=== PATIENT | male | born 1975 | race Caucasian/White ===

== ENCOUNTER → 2016-08-19 | Outpatient (CLI) | payer OTHER | LOC: CIMAGING 08:10 | PROVIDERS: ATTEND Internal Medicine Nephrology | DX: Q61.9 Cystic kidney disease, unspecified (principal) | CPT/HCPCS: 76770-PO ==

== ENCOUNTER → 2017-11-25 | Outpatient (CLI) | payer OTHER ==
[~2017-11-25] MED LIST: GADOBUTROL 10 ML VIAL IVP ONE
== END ==
LOC: FIMAGING 06:46
PROVIDERS: ATTEND Internal Medicine Endocrinology, Diabetes & Metabolism
DX: E23.7 Disorder of pituitary gland, unspecified (principal); J01.80 Other acute sinusitis
CPT/HCPCS: 82565-PO; A9585